=== PATIENT | female | born 1980 | race Caucasian/White ===

== ENCOUNTER 2018-06-14 06:54 | Inpatient (IN) | payer BC, OTHER ==
[2018-06-14 10:13] VITALS: BMI 25.1
[2018-06-14] MEDS ORDERED: Lactated Ringer's 1,000 ML IV ONE (10:27)
[2018-06-14] MEDS ORDERED: Oxytocin 30 UNIT 30 UNITS/500 ML BAG IV ONE (10:28)
[2018-06-14] MEDS ORDERED: OXYTOCIN/0.9 % NS 20 UNIT/1,000 ML BAG IV SCH (10:30)
[2018-06-14] MEDS ORDERED: Lactated Ringer's 1,000 ML IV SCH (10:30)
[2018-06-14 13:25] LABS: BASO # 0.2 K/uL (0.0-0.2); BASO % 1.3 % (0.0-2.0); EOS % 0.1 % (0.0-4.0); HEMOGLOBIN 11.9 g/dL (12.0-16.0); LYMPH # 1.3 K/uL (1.0-4.3); LYMPH % 8.9 % (20.0-40.0); MEAN CELL VOLUME 87.1 fl (81.0-99.0); MEAN CORPUSCULAR HEMOGLOBIN 27.9 pg (27.0-31.0); MEAN PLATELET VOLUME 9.2 fl (7.2-11.7); MONO # 0.9 K/uL (0.0-0.8); MONO % 6.4 % (0.0-10.0); NEUT # 11.8 K/uL (1.8-7.0); NEUT % 83.3 % (50.0-75.0); PLATELET COUNT 275 K/uL (130-400); RBC 4.28 Mil/uL (3.80-5.20); RED CELL DISTRIBUTION WIDTH 15.3 % (11.5-14.5); WHITE BLOOD COUNT 14.1 K/uL (4.8-10.8)
--- NOTE | 2018-06-14 13:43 | OBHP ---
Datetime: 06/14/2018 13:41 Presentation-Admit: Vertex FHR - Baseline A Provider: 150 Amniotic Fluid Color, Provider: Bloody Membranes, Provider: Bulging Contraction Comments Provider: q 3 min Gestation - Est Wks by US: 40.0 NICHD Variability Prov Fetus A: Moderate 6-25bpm Dilatation, Provider: 7 Effacement, Provider: 90 Station, Provider: 0 Datetime: 06/14/2018 10:29 IP Adm Impression: Term, intrauterine IP Admit Plan: Admit to unit; Initiate labor protocol Admit Comment, IP Provider: 38 year old with IUP @ 40 wks based on MARITA presents to [facility] for CTX that started this morning at 1am. Denies LOF per the vagina, no vaginal bleeding. Endorses good feta l movement. Denies chest pain, dyspnea, fevers, and chills. pt preorts ctx pain every 5 min , does n ot desire pain mediation ROS: Negative except for stated above in HPI. OB: Dr. Adorno. PMH: Denies PSH: Denies Medications: PNV Allergies: Denies Social: Denies any tobacco, alcohol or drug use Labs: HIV: negative; HbsAg: negative; GBS: negative; Rubella: immune; RPR: Non-reactive; ABO: B+; Antibody: negative. PHYSICAL EXAM: Patient reports she is nervous but is resting comfortably in her bed. Vitals reviewed Heart: S1 and S2 appreciated on exam. No murmurs, gallops or rubs. Lungs: Clear to auscultation bilaterally. Good air movement. Good respiratory effort. Abdomen: Soft, non-tender to palpation, gravid, bowel sounds in all four quadrants ASSESSMENT/PLAN: 37 year old with IUP @ 40 wks based on MARITA presents to [facility] for CTX. - Admit to L _ D - Anticipate vaginal delivery - LR - anesthesia consult - Continue [place] and EFM monitoring. - NST- reactive- category 1 tracing. - CBC, T_S, Third trimester labs Discussed with Dr. Dr. Kyree Sharpe, PGY-1 agree itwh aove @ 40 wks in labor admit andrew amgnemtn prn silvio and efm Pelvic Type - PN: Adequate Extremities - PN: Normal Abdomen - PN: Normal Back - PN: Normal Breast - PN: Not Done Lungs - PN: Normal Heart - PN: Normal Thyroid - PN: Normal Neurologic - PN: Normal HEENT - PN: Normal General - PN: Normal IP Hx Assessment: The History has been Reviewed and is Current EGA AdmitDate IP: 40.0 Vital Signs Provider: Reviewed; Within Normal Limits IP Indication for Induction: Not Applicable IP Chief Complaint: Uterine contractions; Maternal discomfort NICHD Accel Fetus A IP Provider: 15X15 FHR Category Provider Fetus A: Category I NICHD Decel Fetus A IP Provider: None Genitourinary Exam: Normal DTRs - PN: Normal
--- NOTE | 2018-06-14 14:01 | OBPN ---
Datetime: 06/14/2018 13:41 IP Progress Impression: Normal progression of labor IP Informed Consent Obtain: Vaginal Delivery IP Progress Plan: Continue present management Membranes, Provider: Bulging Amniotic Fluid Color, Provider: Bloody Contraction Comments Provider: q 3 min FHR - Baseline A Provider: 150 Gestation - Est Wks by US: 40.0 Presentation-Admit: Vertex IP Progress Note Comment: pt seen and examiend report ctx pain egetting closer adn stronger to gethe r, does not desire pain medcaitn. pt with small lof, bloody. VS see above VE: / EFM: 150/mod lisa nel of maternal heart rate wtih patietn in standing postion TO:C q 3m in a/p @ 40 wks in labor cont current mangment NICHD Variability Prov Fetus A: Moderate 6-25bpm Dilatation, Provider: 7 Effacement, Provider: 90 Station, Provider: 0 Datetime: 06/14/2018 10:29 Vital Signs Provider: Reviewed; Within Normal Limits NICHD Accel Fetus A IP Provider: 15X15 FHR Category Provider Fetus A: Category I NICHD Decel Fetus A IP Provider: None
--- NOTE | 2018-06-14 14:20 | OBPN ---
Datetime: 06/14/2018 14:17 IP Progress Impression: Normal progression of labor IP Informed Consent Obtain: Vaginal Delivery IP Progress Plan: Continue present management Membranes, Provider: Ruptured Amniotic Fluid Color, Provider: Bloody FHR - Baseline A Provider: 130 Gestation - Est Wks by US: 40.0 Presentation-Admit: Vertex IP Progress Note Comment: pt seen adn examiend for preogressn of labor vs see aove ve; SROM EMF: Cat I TOCO: q 3 min a/p @ 40 wks GA in labor con tcurretn managment pt dised of covering physican in house FHR Category Provider Fetus A: Category I NICHD Variability Prov Fetus A: Moderate 6-25bpm Dilatation, Provider: 8 Effacement, Provider: 90 Station, Provider: 0 NICHD Decel Fetus A IP Provider: None
[2018-06-14 15:11] LABS: ANISOCYTOSIS SLIGHT; HYPOCHROMIC SLIGHT; LYMPHOCYTE 13 % (20-50); MONOCYTE 8 % (0-10); NEUTROPHIL 79 % (42-75); PLATELET ESTIMATE NORMAL (NORMAL); TOTAL CELLS COUNTED 100; TOXIC GRANULATION PRESENT
[2018-06-14] MEDS ORDERED: Lidocaine 1% Inj (20ml) ONE (15:25)
[2018-06-14] MEDS ORDERED: Benzocaine/Menthol SPRAY TOP PRN ×2 (19:36→21:07)
[2018-06-15 06:33] LABS: BASO # 0.1 K/uL (0.0-0.2); BASO % 0.5 % (0.0-2.0); EOS % 0.1 % (0.0-4.0); HEMOGLOBIN 10.4 g/dL (12.0-16.0); LYMPH # 1.4 K/uL (1.0-4.3); LYMPH % 6.2 % (20.0-40.0); MEAN CELL VOLUME 86.2 fl (81.0-99.0); MEAN CORPUSCULAR HEMOGLOBIN 27.5 pg (27.0-31.0); MEAN PLATELET VOLUME 8.7 fl (7.2-11.7); MONO # 2.1 K/uL (0.0-0.8); MONO % 9.4 % (0.0-10.0); NEUT % 83.8 % (50.0-75.0); RBC 3.76 Mil/uL (3.80-5.20); WHITE BLOOD COUNT 22.6 K/uL (4.8-10.8)
--- NOTE | 2018-06-15 09:36 | OBDS ---
DELIVERY PERSONNEL Delivery Doctor: Roby Martinez MD Development Eng: Arline Barrientos RN MATERNAL INFORMATION Delivery Anesthesia: None Medications in Delivery: Pitocin 30 mu/500 mL LR, Lidocaine 1% Estimated Blood Loss (ml): 200 Placenta Cultured: No Maternal Complications: None Provider Comments: . Pt delivered viable infant with Apgars 9/9 via RUDY position. Loose nuchal cord x 1. Placenta del ivered spontaneously. Lac repaired, as above. Uterus firm and approp hemostatic following delivery. Pt tolerated delivery and repair well. No complications. EBL 200cc. LABOR SUMMARY EDC: 06/14/2018 00:00 No. Babies in Womb: 1 Attempted: No Labor Anesthesia: None LABOR INFORMATION Reason for Induction: Not Applicable Onset of Labor: 06/14/2018 10:40 Complete Dilatation: 06/14/2018 17:23 Oxytocin: N/A Group B Beta Strep: Negative Antibiotics # of Doses: 0 Antibiotics Time of Last Dose: 0 Steroids Given: None Reason Steroids Not Administered: Not Applicable MEMBRANES Membranes Rupture Method: Spontaneous Rupture of Membranes: 06/14/2018 13:41 Length of Rupture (hrs): 4.90 Amniotic Fluid Color: Clear Amniotic Fluid Amount: Small Amniotic Fluid Odor: Normal STAGES OF LABOR Stage 1 hrs: 6 Stage 1 min: 43 Stage 2 hrs: 1 Stage 2 min: 12 Stage 3 hrs: 0 Stage 3 min: 5 Total Time in Labor hrs: 8 Total Time in Labor min: 0 VAGINAL DELIVERY Episiotomy: Median Laceration Extension: Second Degree Laceration Type: Vaginal Laceration Repair: Yes Laceration Repair Note: Second degree midline perineal laceration and first degree lateral vaginal l ac. Areas infiltrated with 1% lidocaine. Lacs repaired with 2.0 rapide without complication. Pt to lerated well. Initial Vag Sponge Count: 5 Final Vag Sponge Count: 5 Initial Vag Sharps Count: 3 Final Vag Sharps Count: 3 Sponge Count Correct: Yes Sharps Count Correct: Yes BABY A INFORMATION Delivery Date/Time: 06/14/2018 18:35 Method of Delivery: Vaginal Born in Route : No : N/A Forceps: N/A Vacuum Extraction: N/A Shoulder Dystocia : No SHOULDER DYSTOCIA BABY A Delivery Date/Time: 06/14/2018 18:35 PRESENTATION/POSITION BABY A Presentation: Cephalic Cephalic Presentation: Vertex Vertex Position: Left Occipital Anterior Breech Presentation: N/A PLACENTA INFORMATION BABY A Placenta Delivery Time : 06/14/2018 18:40 Placenta Method of Delivery: Spontaneous Placenta Status: Delivered SCORES BABY A Heart Rate 1 min: >100 bpm Resp Effort 1 min: Good Cry Reflex Irritability 1 min: Cough or Sneeze or Pulls Away Muscle Tone 1 min: Active Motion Color 1 min: Body [place], Extremities Blue Resuscitation Effort 1 min: N/A SCORE 1 MIN: 9 Heart Rate 5 min: >100 bpm Resp Effort 5 min: Good Cry Reflex Irritability 5 min: Cough or Sneeze or Pulls Away Muscle Tone 5 min: Active Motion Color 5 min: Body [place], Extremities Blue Resuscitation Effort 5 min: N/A SCORE 5 MIN: 9 INFANT INFORMATION BABY A Gestational Age at Delivery: 40.0 Gestational Status: Term Infant Outcome : Liveborn Infant Condition : Stable Sex: Male IDENTIFICATION/MEDS BABY A ID Band Number: [id number] ID Band Location: Left Leg; Left Arm WEIGHT/LENGTH BABY A Birthweight (gms): 3520 Infant Weight (lb): 7 Weight (oz): 12 CORD INFORMATION BABY A No. Cord Vessels: 3 Nuchal Cord : Around Neck x1, Loose Cord Blood Taken: Yes Suction: None
--- NOTE | 2018-06-15 09:39 | OBDS ---
DELIVERY PERSONNEL Delivery Doctor: Roby Martinez MD Medical Staff Physician: Arline Barrientos RN MATERNAL INFORMATION Delivery Anesthesia: None Medications in Delivery: Pitocin 30 mu/500 mL LR, Lidocaine 1% Estimated Blood Loss (ml): 200 Placenta Cultured: No Maternal Complications: None Provider Comments: . Pt delivered viable infant with Apgars 9/9 via RUDY position. Loose nuchal cord x 1. Placenta del ivered spontaneously. Lac repaired, as above. Uterus firm and approp hemostatic following delivery. Pt tolerated delivery and repair well. No complications. EBL 200cc. LABOR SUMMARY EDC: 06/14/2018 00:00 EDC: 06/14/2018 00:00 No. Babies in Womb: 1 Attempted: No Labor Anesthesia: None LABOR INFORMATION Reason for Induction: Not Applicable Onset of Labor: 06/14/2018 10:40 Complete Dilatation: 06/14/2018 17:23 Oxytocin: N/A Group B Beta Strep: Negative Antibiotics # of Doses: 0 Antibiotics Time of Last Dose: 0 Steroids Given: None Reason Steroids Not Administered: Not Applicable MEMBRANES Membranes Rupture Method: Spontaneous Rupture of Membranes: 06/14/2018 13:41 Length of Rupture (hrs): 4.90 Amniotic Fluid Color: Clear Amniotic Fluid Amount: Small Amniotic Fluid Odor: Normal STAGES OF LABOR Stage 1 hrs: 6 Stage 1 min: 43 Stage 2 hrs: 1 Stage 2 min: 12 Stage 3 hrs: 0 Stage 3 min: 5 Total Time in Labor hrs: 8 Total Time in Labor min: 0 VAGINAL DELIVERY Episiotomy: Median Laceration Extension: Second Degree Laceration Type: Vaginal Laceration Repair: Yes Laceration Repair Note: Second degree midline perineal laceration and first degree lateral vaginal l ac. Areas infiltrated with 1% lidocaine. Lacs repaired with 2.0 rapide without complication. Pt to lerated well. Initial Vag Sponge Count: 5 Final Vag Sponge Count: 5 Initial Vag Sharps Count: 3 Final Vag Sharps Count: 3 Sponge Count Correct: Yes Sharps Count Correct: Yes BABY A INFORMATION Delivery Date/Time: 06/14/2018 18:35 Method of Delivery: Vaginal Method of Delivery: Vaginal Born in Route : No : N/A Forceps: N/A Vacuum Extraction: N/A Shoulder Dystocia : No SHOULDER DYSTOCIA BABY A Delivery Date/Time: 06/14/2018 18:35 PRESENTATION/POSITION BABY A Presentation: Cephalic Cephalic Presentation: Vertex Vertex Position: Left Occipital Anterior Breech Presentation: N/A PLACENTA INFORMATION BABY A Placenta Delivery Time : 06/14/2018 18:40 Placenta Method of Delivery: Spontaneous Placenta Method of Delivery: Spontaneous Placenta Status: Delivered SCORES BABY A Heart Rate 1 min: >100 bpm Resp Effort 1 min: Good Cry Reflex Irritability 1 min: Cough or Sneeze or Pulls Away Muscle Tone 1 min: Active Motion Color 1 min: Body [place], Extremities Blue Resuscitation Effort 1 min: N/A SCORE 1 MIN: 9 Heart Rate 5 min: >100 bpm Resp Effort 5 min: Good Cry Reflex Irritability 5 min: Cough or Sneeze or Pulls Away Muscle Tone 5 min: Active Motion Color 5 min: Body [place], Extremities Blue Resuscitation Effort 5 min: N/A SCORE 5 MIN: 9 INFANT INFORMATION BABY A Gestational Age at Delivery: 40.0 Gestational Status: Term Infant Outcome : Liveborn Condition : Stable Infant Sex: Male IDENTIFICATION/MEDS BABY A ID Band Number: [id number] ID Band Location: Left Leg; Left Arm WEIGHT/LENGTH BABY A Infant Birthweight (gms): 3520 Infant Weight (lb): 7 Infant Weight (oz): 12 CORD INFORMATION BABY A No. Cord Vessels: 3 Nuchal Cord : Around Neck x1, Loose Cord Blood Taken: Yes Suction: None
[2018-06-15 13:39] LABS: BASO % 0.1 % (0.0-2.0); EOS % 0.1 % (0.0-4.0); HEMOGLOBIN 10.5 g/dL (12.0-16.0); LYMPH % 9.4 % (20.0-40.0); MEAN CELL VOLUME 85.9 fl (81.0-99.0); MEAN CORPUSCULAR HEMOGLOBIN 28.2 pg (27.0-31.0); MEAN CORPUSCULAR HGB CONC 32.9 g/dL (33.0-37.0); MEAN PLATELET VOLUME 8.6 fl (7.2-11.7); MONO # 1.5 K/uL (0.0-0.8); MONO % 7.1 % (0.0-10.0); NEUT # 17.8 K/uL (1.8-7.0); NEUT % 83.3 % (50.0-75.0); NRBC % 0.1 % (0.0-0.0); RBC 3.74 Mil/uL (3.80-5.20); WHITE BLOOD COUNT 21.3 K/uL (4.8-10.8)
--- NOTE | 2018-06-15 17:26 | OBPPN ---
Datetime: 06/15/2018 17:22 PP Pain Prov: Within normal limits PP Nausea Prov: Denies PP Flatus Prov: Yes PP BM Prov: No PP Breasts Prov: Normal PP Heart Prov: Normal PP Lungs Prov: Normal PP Abdomen/Uterus Prov: Normal PP Lochia Prov: Normal PP Vulva/Perineum Prov: Normal PP CVA Tenderness Prov: Normal PP Extremities Prov: Normal PP C/S Incision Prov: Not Applicable PP Progress Prov: Normal PP Impression Prov: Normal progression PP Plan Prov: Continue present management PP Progress Note Prov: pt seen and examien chacho rpeorts just work up from a nap and has a headache. pt preorts crmapign pain with breast feedign tolerable, pt is abmaitng, voidng, pasisng flauts, toelr ating reuglar diet, deis any fever, chills, cp, sob, dizzyness. VSS PE see above a/p s/p NSVPD PPD #1 with luekocyotsis, -pain managmnet -encoaruatge breats sfeeding and ambating -ancef : pt adiesd on obersvaotn with repeat cbc, vs anbtiocs, woudl liek to do anbiroics -headache: hydatrion, tyeonol -am cbc Vital Signs Provider PP: Reviewed; Within Normal Limits
[2018-06-15] MEDS ORDERED: Prenatal Multivit/Folic Acid/Iron Tab PO STA (17:27)
[2018-06-15] MEDS: ceFAZolin 1 GM in Sodium Chloride 0.9% 100 ML IVPB SCH (21:59)
[2018-06-16] MEDS: ceFAZolin 1 GM in Sodium Chloride 0.9% 100 ML IVPB SCH (05:18)
--- NOTE | 2018-06-16 08:15 | OBPPN ---
Datetime: 06/16/2018 08:11 PP Pain Prov: Within normal limits PP Abdomen/Uterus Prov: Normal PP Lochia Prov: Normal PP Extremities Prov: Normal PP Progress Prov: Normal PP Impression Prov: Normal progression PP Progress Note Prov: PPD 2 s/p w/ elevated WBC Will follow CBC this am and likely discharge home today. Vital Signs Provider PP: Reviewed
[2018-06-16 08:34] LABS: BASO # 0.1 K/uL (0.0-0.2); BASO % 0.5 % (0.0-2.0); EOS % 0.3 % (0.0-4.0); HEMOGLOBIN 10.8 g/dL (12.0-16.0); LYMPH # 1.9 K/uL (1.0-4.3); LYMPH % 11.3 % (20.0-40.0); MEAN CORPUSCULAR HGB CONC 32.6 g/dL (33.0-37.0); MEAN PLATELET VOLUME 8.4 fl (7.2-11.7); MONO # 1.1 K/uL (0.0-0.8); MONO % 6.9 % (0.0-10.0); NEUT # 13.3 K/uL (1.8-7.0); NRBC % 0.1 % (0.0-0.0); RBC 3.85 Mil/uL (3.80-5.20); RED CELL DISTRIBUTION WIDTH 15.3 % (11.5-14.5); WHITE BLOOD COUNT 16.4 K/uL (4.8-10.8)
[2018-06-16] MEDS ORDERED: Prenatal Multivit/Folic Acid/Iron Tab PO SCH (09:00)
--- NOTE | 2018-06-16 12:05 | OBDCSUM ---
Datetime: 06/16/2018 12:03 Discharged to, Provider: Home Follow up at, Provider: Dr. Kyree Rodriguez Instr Activity: Normal activity; May Shower Disch Instr Diet: Regular Discharge Instructions, Provider: Routine instructions given Discharge Diagnosis, Provider: Term Delivered Discharge Time: 06/16/2018 12:03 Follow up in weeks, Provider: 6 weeks Contraception discussed, Prov: No Disch Activity Restrictions: No exercising; No lifting; No sexual activity; Nothing in vagina - Inte rcourse, tampons, douche
[2018-06-16 23:47] VITALS: BP 116/67; PULSE 86; RESP 20; TEMP 98.6; O2SAT 99
== END 2018-06-16 16:38 | disposition home or self-care (01) | DRG 807 ==
LOC: H.EROB2 06:54 → H.L&D 10:27 → H.OB/GYN 21:30
PROVIDERS: ADMIT Obstetrics & Gynecology; ATTEND Obstetrics & Gynecology
PROC: 10E0XZZ Delivery of Products of Conception, External Approach (ICD-10-PCS; principal; 2018-06-14)
PROC: 0W8NXZZ Division of Female Perineum, External Approach (ICD-10-PCS; 2018-06-14)
PROC: 4A1HXCZ Monitoring of Products of Conception, Cardiac Rate, External Approach (ICD-10-PCS; 2018-06-14)
DX: O69.81X0 Labor and delivery complicated by cord around neck, without compression, not applicable or unspecified (principal); Z37.0 Single live birth; O70.1 Second degree perineal laceration during delivery; Z3A.40 40 weeks gestation of pregnancy